=== PATIENT | male | born 1960 | race Caucasian/White ===

== ENCOUNTER 2022-11-19 10:29 | Outpatient (CLI) | payer OTHER, SELFPAY ==
--- NOTE | 2022-11-19 11:27 | W.ANESCHARGE ---
Anesthesia Charges Start Date/Time Anesthesia Start Date: 11/19/22 Anesthesia Start Time: 11:40 Stop Date/Time Anesthesia Stop Date: 11/19/22 Anesthesia Stop Time: 12:00
--- NOTE | 2022-11-19 12:04 | W.ANESCHARGE ---
Anesthesia Charges Start Date/Time Anesthesia Start Date: 11/19/22 Anesthesia Start Time: 11:40 Stop Date/Time Anesthesia Stop Date: 11/19/22 Anesthesia Stop Time: 12:00
== END 2022-11-19 10:30 | disposition home or self-care (01) ==
LOC: OP CLINIC 10:32
PROVIDERS: PCP Family Medicine; Visit Provider Internal Medicine Gastroenterology
DX: R13.10 Dysphagia, unspecified (principal); K22.89 Other specified disease of esophagus; K31.89 Other diseases of stomach and duodenum
CPT/HCPCS: 43239; 731; 88305; J2704; J3490